=== PATIENT | male | born 1935 | race Caucasian/White ===

== ENCOUNTER 2017-05-29 09:57 | Emergency (ER) | payer MEDICARE ==
[2017-05-29 11:05] VITALS: BP 118/61
--- NOTE | 2017-05-29 11:44 | UC ---
Respiratory Complaint HPI - HPI Summary HPI Summary: 82 y/o male presents to the urgent care accompany by daughter c/o productive cough, wheezing at night, weakness, body aches fo rthe past week. He had mild subjective fever at home last night with nasal congestion and yellowish discharge and phlegm. Pt run out of his albuterol inhaler. Pt denies SOB, chest pain, N/V/D, sore throat, abdominal pain, GRAY, dizziness. 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 - History of Current Complaint Chief Complaint: UCGeneralIllness Stated Complaint: CONGESTION RASPY COUGH Time Seen by Provider: 05/29/17 11:34 Hx Obtained From: Patient, Family/Industrial Conveyor Belt Repairer - chitra Hx From Patient Unobtainable Due To: Altered Mental Status Onset/Duration: Gradual Onset, Lasting Weeks - 1 week, Still Present, Worse Since - yesterday Timing: Intermittent Episodes Severity Initially: Mild Severity Currently: Moderate Pain Intensity: 2 Pain Scale Used: 0-10 Numeric Character: Cough: Productive, Sputum Description: - yellowish Aggravating Factors: Recumbent Position Alleviating Factors: Bronchodilator Associated Signs And Symptoms: Positive: Fever, Wheezing, URI, Nasal Congestion - Risk Factors Pulmonary Embolism Risk Factors: Negative Cardiac Risk Factors: Negative Pseudomonas Risk Factors: Negative Tuberculosis Risk Factors: Negative - Allergies/Home Medications Allergies/Adverse Reactions: Allergies Allergy/AdvReac Type Severity Reaction Status Date / Time Levofloxacin [From Levaquin] Allergy Itching Verified 05/29/17 11:05 Penicillins Allergy Rash Verified 05/29/17 11:05 PMH/Surg Hx/FS Hx/Imm Hx Previously Healthy: Yes Cardiovascular History: Hypertension, Congestive Heart Failure Respiratory History: COPD - Surgical History Surgical History: None - Family History Known Family History: Positive: None, Cardiac Disease, Hypertension - Social History Occupation: Retired Lives: With Family Alcohol Use: None Substance Use Type: None Smoking Status (MU): Never Smoked Tobacco - Immunization History Most Recent Influenza Vaccination: not this season Most Recent Tetanus Shot: unk Most Recent Pneumonia Vaccination: 2016 Review of Systems Constitutional: Fever Skin: Negative Eyes: Negative ENT: Nasal Discharge, Sinus Congestion Respiratory: Cough, Other - wheezing at night time Cardiovascular: Negative Gastrointestinal: Negative Genitourinary: Negative Motor: Negative Neurovascular: Negative Musculoskeletal: Negative Neurological: Negative Psychological: Negative Is Patient Immunocompromised?: No All Other Systems Reviewed And Are Negative: Yes Physical Exam Triage Information Reviewed: Yes Vital Signs: Initial Vital Signs Temp 98.1 F 05/29/17 11:00 Pulse 70 05/29/17 11:00 Resp 16 05/29/17 11:00 BP 118/61 05/29/17 11:00 Pulse Ox 95 05/29/17 11:00 - Additional Comments Vital Signs Reviewed: Yes General: well developed, well nourished obese male sitting in the examining table w/o any apparent distress Eyes: Positive: Conjunctiva Clear - PERRLA, EOMI, fundi grossly normal ENT: Positive: Normal ENT inspection, Hearing grossly normal, Pharynx normal, Nasal congestion - edematous and erythematous nasal mucosa, Nasal drainage - yellowish drainage, TMs normal. Negative: Tonsillar swelling, Tonsillar exudate Neck: Positive: Supple, Nontender, No Lymphadenopathy Respiratory: no orthopnea or dyspnea. Able to speak in full sentences, no retractions or accessory muscle use, no tripod position, stridor, or head bobbing. Positive breath sound, B/L lungs with scattered wheezes and rhonchi., no crackles or rales. Cardiovascular: Positive: RRR, No Murmur, Pulses Normal, Brisk Capillary Refill Abdomen Description: Positive: Nontender, No Organomegaly, Soft. Negative: CVA Tenderness (R), CVA Tenderness (L) Bowel Sounds: Positive: Present Musculoskeletal Exam: Normal Musculoskeletal: Positive: Strength Intact, ROM Intact, No Edema Neurological Exam: Normal Psychological Exam: Normal Skin Exam: Normal UC Diagnostic Evaluation - Laboratory O2 Sat by Pulse Oximetry: 95 Respiratory Course/Dx - Course Course Of Treatment: 82 y/o male presents to the urgent care accompany by daughter c/o productive cough, wheezing at night, weakness, body aches fo rthe past week. He had mild subjective fever at home last night with nasal congestion and yellowish discharge and phlegm. Pt run out of his albuterol inhaler. Pt denies SOB, chest pain, N/V/D, sore throat, abdominal pain, GRAY, dizziness. 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 Pt with B/L lungs with wheezes and rhonchi LF>RT, [id number]%. Chest X-ray odered: Impression: Suguestive of chronic COPD, and possible left Basilar pulmonary nodule about 1.0cm in size. Radiologist recommends chest CT w/o contrast. Pt and Daughter explained X-ray results and they stated they were already aware of Pulmonary Nodule and DR Miranda Senior Linux [employer] Administrator at [facility] was monitoring his pulmonary Nodule for the past 2 years. I consulted Pt's symptoms with DR Green and she recommended to call DR Luna. I call DR Miranda and told him of X- ray findings and he agreed that he has been monitoring Pt's Pulmonary Nodule, last CT done in 2015 was 0.9cm in size and he will see Pt for a f/u visit. Pt given at the clinic Prednisone 60 mg PO ordered and Duneb treatment ordered. Pt tolerated well medications and his lungs improved. Pt states feeling better. Pt will be Tx for Acute Bronchitis, Rx Doxycycline PO , Prednisone taper dose and Inhaler. Strongly advised to f/u with her PCP for further management COPD and f/ u with DR Molina for his Pulmonary Nodule. Pt and daughter understood and agreed with D/C instructions and left the clinic hemodynamically stable. - Differential Dx/Diagnosis Differential Diagnosis/HQI/PQRI: Asthma, Bronchitis, Exacerbation Of COPD, Influenza, Lower Resp Infection, Sinusitis Provider Diagnoses: 1- COPD exacerbation. 2- Left basilar lung with a pulmonary nodule - Physician Notification/Consults Discussed Patient Care With: Sil Green - Dr Green agreed with Pt's planof care Discharge - Discharge Plan Condition: Stable Disposition: HOME Prescriptions: Albuterol HFA INHALER* [Ventolin HFA Inhaler*] 1 - 2 puff INH Q6H PRN #1 mdi PRN Reason: Wheezing Albuterol/Ipratropium NEB.PETER* [Duoneb (Albuterol 2.5 MG/Ipratropium 0.5 MG)] 1 neb INH Q6H PRN #1 melita PRN Reason: Wheezing DOXYcycline CAP(*) [DOXYcycline 100MG CAP(*)] 100 mg PO BID #20 cap predniSONE TAB* [Deltasone TAB*] 20 mg PO DAILY #8 tab Patient Education Materials: Acute Bronchitis (ED), COPD (Chronic Obstructive Pulmonary Disease) (ED), Pulmonary Nodules (ED) Referrals: Scott Rodriguez MD [Primary Care Provider] - 2 Days Yahir Miranda MD [Medical Doctor] - 2 Days Additional Instructions: 1-Please take full course of antibiotic to avoid resistance. 2-Take Tessalon PO tabs as directed and use the duo neb inhaler to alleviate cough. Increase fluid intake, rest and eat well. 3- If symptoms do not improve or worsen or your develop SOB with fever and severe wheezing please go immediately to the ER further evaluation and treatment. 4- F/u with your PCP in 2-3 days for further management on your COPD 5- F/u with your Senior Linux Unix Administrator DR Miranda on your Pulmonary nodule for further monitor
[2017-05-29] MEDS ORDERED: predniSONE TAB* 20 MG PO ONE (11:45)
[2017-05-29] MEDS ORDERED: Albuterol/Ipratropium NEB.SOL* Albuterol 2.5 MG/Ipratropium 0.5 MG 3 ML INH ONE (11:45)
--- NOTE | 2017-05-29 12:14 | RAD ---
INDICATION: Productive cough and wheezing. COMPARISON: Comparison is made with a prior study from February 11, 2015. TECHNIQUE: Dual-energy PA and lateral views of the chest were obtained. FINDINGS: The heart is within normal limits in size. Mediastinal and hilar contours appear within normal limits. The lungs are hyperinflated with flattening of the diaphragms suggestive of chronic obstructive pulmonary disease. No infiltrate or pleural effusion is seen. There is a faint 1 cm nodular density which projects at the left lung base only seen in the PA view. The results of this exam were called to the referring clinicians insurance legal assistant. IMPRESSION: 1. POSSIBLE LEFT BASILAR PULMONARY NODULE. RECOMMEND A CT OF THE CHEST WITHOUT CONTRAST FOR FURTHER EVALUATION. 2. FINDINGS SUGGESTIVE OF COPD, NO EVIDENCE FOR ACUTE FINDING.
== END 2017-05-29 12:51 | disposition home or self-care (01) ==
LOC: UCCORT 09:57
DX: J44.1 Chronic obstructive pulmonary disease with (acute) exacerbation (principal); I11.0 Hypertensive heart disease with heart failure; I50.9 Heart failure, unspecified; R91.1 Solitary pulmonary nodule; Z88.3 Allergy status to other anti-infective agents; Z88.0 Allergy status to penicillin
CPT/HCPCS: 71020; 99212; A9270-GY; G0463; J7512

== ENCOUNTER 2018-07-17 10:00 | Emergency (ER) | payer MEDICARE ==
--- OUTSIDE RECORDS SUMMARY | 2018-07-17 10:13 | XMS REPORT | Continuity of Care Document ---
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 Payers Type Date Identification Numbers Payment Provider Subscriber Effective: 2018 Policy Number: [id number] [employer] Michael Ortiz Group Name: [employer] [address] [address] PayID: [id number] [place] [address] Effective: 2015 Policy Number: [id number] [employer] Michael Ortiz Expires: 2018 Group Name: [facility] [address] [address] PayID: [id number] [place] [address] Advance Directives Description No Information Available Problems Date Description Provider Status Onset: 11/11/2015 Syncope and collapse Pat Young MD Active Onset: 01/19/2016 Paroxysmal ventricular tachycardia Ranjbaran-Jahromi, Ojey Active Onset: 01/19/2016 Mitral valve disorder Ranjbaran-Jahromi, Joey Active Onset: 01/19/2016 Aortic valve disorder Ranjbaran-Jahromi, Joey Active Onset: 01/19/2016 Edema Ranjbaran-Jahromi, Joey Active Onset: 04/25/2016 Screening for cardiovascular Ranjbaran-Jahromi, Joey Active system disease Onset: 04/25/2016 Thrombosis of atrium, auricular Ranjbaran-Jahromi, Joey Active appendage, 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 Onset: 05/14/2017 Obesity Ranjbaran-Jahromi, Joey Active Onset: 05/14/2017 Heart failure, unspecified Ranjbaran-Jahromi, Joey Active Onset: 11/13/2017 Dyspnea Bryce Rachel PA Active Onset: 01/19/2016 Essential hypertension Joey Moser Active Onset: 01/16/2018 Dizziness and giddiness Cathi Yu NP Active Onset: 01/16/2018 Long-term current use of Cathi Yu NP Active anticoagulant Onset: 01/16/2018 Malaise and fatigue Cathi uY NP Active Onset: 01/16/2018 Other hypotension Cathi Yu NP Active Onset: 03/27/2018 Heart valve replacement Joey Moser Active Family History Date Family Member(s) Problem(s) Comments Mother due to Congestive Heart () - AT 89 Failure Social History Type Date Description Comments Sex Unknown Marital Status Legal Status: Work Status Retired ETOH Use Denies alcohol use Tobacco Use Start: Unknown Patient has never smoked Smoking Status Reviewed: 03/25/18 Patient has never smoked Allergies, Adverse Reactions, Alerts Date Description Reaction Status Severity Comments 04/25/2016 Penicillin rash Active Severe 04/25/2016 Hydrocodone Nausea and Vomiting Active Severe 04/25/2016 Codeine Nausea and Vomiting Active Severe 04/25/2016 Prednisone leg cramps Active Moderate 11/13/2017 Vicodin nausea, vomiting, dizziness Active Medications Medication Date Status Form Strength Qnty SIG Indications Ordering Provider Carol M20 01/16/ Active Tablets ER 20Meq 1 by mouth Ranjbaran 2017 every day -Joey Lemus Ventolin HFA / Active Aerosol 108(90Base 2 puffs Unknown 0000 ) mcg/Act four times a day as needed L-Lysine / Active Tablets 500mg Daily Unknown 0000 Warfarin / Active Tablets 5mg 60tabs Take One Ranjbaran Sodium 0000 Tablet By -Ki Lemus Every Day Or as Directed Maximum Daily Dose=2 Nitrostat / Active Tablets Sub 0.4mg 1 tab Unknown 0000 under tongue, repeat q5 mins x2, as needed for chest pain Milk Of / Active Suspension 1200mg/15M 30ml by Unknown Magnesia 0000 L mouth as needed Tylenol / Active Tablets 325mg 2 tabs 4 Unknown 0000 times daily as needed Senna 00/00/ Active Tablets 8.6mg 1 by mouth Unknown 0000 every night at bedtime prn Ondansetron / Active Tablets 4mg 1 by mouth Unknown HCL 0000 every 6 hours as needed nausea Vitamin B 12 / Active 2500mcg Daily Unknown 0000 Vitamin D3 / Active Capsules 1000Unit 1 by mouth Unknown 0000 every day Requip / Active Tablets 0.25mg bid Unknown 0000 Metoprolol 02/13/ Hx Tablets 25mg 1/2 by Bekajbaran 2018 - mouth -Anjelicaomi, 03/27/ twice a 2017 day Furosemide 01/16/ Hx Tablets 20mg 1 by mouth Gudeliabargriffin 2017 - every day -Alberti, 2018 Klor-Con 01/16/ Hx Packet 20Meq 1 by mouth Gudeliabaran 2017 - every day -Alberti, 2017 Metoprolol 01/18/ Hx Tablets 25mg 180tab take one Ranlyndsaybaran Tartrate 2015 - tablet by -Allan, 02/13/ mouth 2017 twice a day Metoprolol 11/03/ Hx Tablets 25mg 180tab 1 by mouth Gudeliabaran Tartrate 2015 - s twice a -Albert, 2015 Aspirin Ec / Hx Tablets DR 325mg 1 by mouth Unknown 0000 - every day 2016 Tramadol HCL / Hx Tablets 50mg as needed Unknown - 2016 Xanax / Hx Tablets 0.25mg as needed Unknown - 2015 Lovenox / Hx Solution 120mg/0.8M sc twice a Unknown - L day as 2015 Klor-Con M20 / Hx Tablets ER 20Meq 90tabs 1 by mouth Gudeliabaran - twice a -Alberti, 2017 Aspirin / Hx Chewtabs 81mg 1 by mouth Unknown 0000 - every day 2017 Furosemide / Hx Tablets 20mg 180tab take one Ranjbaran - s tablet by -Allan, 01/16/ mouth 2017 twice a day Immunizations CPT Code Status Date Vaccine Lot # [id number] Refused 01/19/2016 Pneumococcal Immunization Vital Signs Date Vital Result Comment 06/26/2018 10:00am BP Systolic Right Arm 174 mmHg BP Diastolic Right Arm 88 mmHg Heart Rate 94 /min Weight 250.00 lb Height 70 inches 5'10" BMI (Body Mass Index) 35.9 kg/m2 BSA (Body Surface Area) 2.29 m2 03/27/2018 9:19am BP Systolic Right Arm 124 mmHg BP Diastolic Right Arm 82 mmHg Heart Rate 86 /min Weight 249.00 lb Height 70 inches 5'10" BMI (Body Mass Index) 35.7 kg/m2 BSA (Body Surface Area) 2.29 m2 02/13/2018 10:23am BP Systolic Right Arm 110 mmHg BP Diastolic Right Arm 70 mmHg Heart Rate 77 /min Weight 239.00 lb Height 70 inches 5'10" BMI (Body Mass Index) 34.3 kg/m2 O2 % BldC Oximetry 95 % BSA (Body Surface Area) 2.25 m2 01/16/2018 8:57am BP Systolic Right Arm 98 mmHg BP Diastolic Right Arm 58 mmHg Heart Rate 91 /min Weight 241.00 lb Height 70 inches 5'10" BMI (Body Mass Index) 34.6 kg/m2 O2 % BldC Oximetry 97 % BSA (Body Surface Area) 2.26 m2 11/13/2017 2:36pm BP Systolic Left Arm 118 mmHg BP Diastolic Left Arm 68 mmHg Heart Rate 65 /min Weight 250.00 lb Height 70 inches 5'10" BMI (Body Mass Index) 35.9 kg/m2 High Density Lipid 36 Low Density Lipid 118 Triglycerides 310 Total Cholesterol 216 O2 % BldC Oximetry 98 % BSA (Body Surface Area) 2.29 m2 05/14/2017 11:08am BP Systolic Right Arm 110 mmHg BP Diastolic Right Arm 70 mmHg Heart Rate 60 /min Weight 256.00 lb Height 70 inches 5'10" BMI (Body Mass Index) 36.7 kg/m2 BSA (Body Surface Area) 2.32 m2 03/12/2017 10:34am BP Systolic Right Arm 114 mmHg BP Diastolic Right Arm 78 mmHg Heart Rate 59 /min Weight 256.25 lb Height 70 inches 5'10" BMI (Body Mass Index) 36.8 kg/m2 BSA (Body Surface Area) 2.32 m2 04/25/2016 11:43am BP Systolic Right Arm 122 mmHg BP Diastolic Right Arm 68 mmHg Heart Rate 72 /min Weight 252.00 lb Height 70 inches 5'10" BMI (Body Mass Index) 36.2 kg/m2 BSA (Body Surface Area) 2.30 m2 01/19/2016 3:31pm BP Systolic Right Arm 128 mmHg BP Diastolic Right Arm 84 mmHg Heart Rate 72 /min Weight 251.00 lb Height 70 inches 5'10" BMI (Body Mass Index) 36.0 kg/m2 BSA (Body Surface Area) 2.30 m2 Results Test Date Facility Test Result H/L Range Note PT/Inr 07/01/2018 Out Of Office Inr 1.5 PT/Inr 06/21/2018 Out Of Office Inr 3.1 PT/Inr 06/13/2018 Out Of Office Inr 2.8 PT/Inr 05/31/2018 Out Of Office Inr 3.5 PT/Inr 05/16/2018 Out Of Office Inr 2.8 PT/Inr 05/07/2018 Home Monitors PT/Inr Inr 3.8 PT/Inr 04/08/2018 Out Of Office PT 19.2 Inr 1.6 PT/Inr 04/01/2018 Out Of Office Inr 2.7 PT/Inr 03/26/2018 Out Of Office Inr 3.9 PT/Inr 03/11/2018 Out Of Office PT 33.9 Inr 3.4 PT/Inr 02/12/2018 Out Of Office Inr 1.8 PT/Inr 02/04/2018 Out Of Office Inr 1.18 PT/Inr 12/03/2017 Out Of Office Inr 2.5 Prothrombin Time W/Inr 11/13/2017 DO Not Use [facility] Inr 3.2 High 1 [address] [facility] [address] [place] [address] [phone] Prothrombin Time 33.2 SECS. High 9.0-11.5 2 PT/Inr 10/04/2017 Out Of Office Inr 2.6 PT/Inr 07/30/2017 Out Of Office Inr 2.6 PT/Inr 07/10/2017 Out Of Office Inr 2.6 PT/Inr 06/19/2017 Out Of Office PT 34.5 Inr 3.5 PT/Inr 04/19/2017 Out Of Office Inr 2.5 PT/Inr 03/06/2017 Out Of Office Inr 2.9 PT/Inr 01/15/2017 Out Of Office Inr 2.7 PT/Inr 12/05/2016 Out Of Office Inr 2.3 PT/Inr 10/31/2016 Out Of Office PT 24.7 Inr 2.3 PT/Inr 10/03/2016 Out Of Office Inr 2.6 PT/Inr 09/05/2016 Out Of Office Inr 2.5 PT/Inr 08/08/2016 Out Of Office Inr 2.4 PT/Inr 08/03/2016 Out Of Office PT 26.5 Inr 2.5 PT/Inr 07/18/2016 Out Of Office PT 29.1 Inr 2.9 PT/Inr 06/27/2016 Out Of Office Inr 2.7 PT/Inr 05/23/2016 Out Of Office Inr 2.0 PT/Inr 05/11/2016 Out Of Office PT 19.2 Inr 1.7 PT/Inr 04/03/2016 Out Of Office PT 27.3 Inr 2.6 PT/Inr 03/02/2016 Out Of Office Inr 1.8 PT/Inr 02/11/2016 Out Of Office Inr 2.5 PT/Inr 02/03/2016 Out Of Office PT 19.6 Inr 1.7 PT/Inr 01/12/2016 Out Of Office PT 23.1 Inr 2.1 PT/Inr 12/31/2015 Out Of Office Inr 2.3 PT/Inr 12/15/2015 Out Of Office Inr 2.1 PT/Inr 12/01/2015 Out Of Office Inr 2.94 PT/Inr 11/24/2015 Out Of Office PT 25.2 Inr 2.4 PT/Inr 11/17/2015 Out Of Office Inr 4.0 PT/Inr 11/09/2015 Out Of Office PT 32.9 Inr 3.4 PT/Inr 10/26/2015 Out Of Office Inr 1.67 Basic metabolic panel 10/24/2015 N2N/CCD Import Anion Gap 12 mmol/L 7 - 16 BUN/Creatinine Ratio 18.1 Ratio 10.0 - 20.0 Calcium 9.1 mg/dL 8.4 - 10.2 Chloride 108 mmol/L 100 - 108 Co2 23 mmol/L 22 - 31 Creatinine 0.94 mg/dL 0.80 - 1.30 GFR MDRD Af Amer >60 >59 ml/min/1.73m2 GFR MDRD Non Af Amer >60 >59 ml/min/1.73m2 Glom Filt Rate, Est See Notes Glucose 94 mg/dL 70 - 99 Potassium 4.3 mmol/L 3.6 - 5.2 Sodium 143 mmol/L 136 - 145 Urea nitrogen 17 mg/dL 7 - 24 CBC 10/24/2015 N2N/CCD Import Hematocrit 39.9 % Low 41.0 - 53.0 Hemoglobin 13.2 g/dL Low 13.5 - 18.0 MCH 29.9 pg 27.0 - 32.0 MCHC 33.1 g/dL 32.0 - 36.0 MCV 90.4 fL 80.0 - 95.0 MPV 8.5 fL 7.1 - 10.7 Platelets 137 10*3/uL Low 150 - 450 RBC 4.41 10*6/uL Low 4.60 - 6.10 RDW 15.6 % High 10.5 - 14.5 WBC 5.2 10*3/uL 4.1 - 11.0 Protime-Inr 10/24/2015 N2N/CCD Import Inr 1.08 1 Protime 10.9 s 9.2 - 11.9 aPTT 10/23/2015 N2N/CCD Import aPTT 63.7 s High 22.0 - 32.6 Rapid strep 10/22/2015 N2N/CCD Import Report Status 10/22/2015 screen Final Special Requests None Specimen Description Throat Swab Poc Blood Gas 10/21/2015 N2N/CCD Import Draw Site LT Radial Poc Armand's Test Negative Poc Art O2 Sat 97 % 95 - 99 Poc Base Exc, Art 1 Mmol/L 0 - 3 Poc Fio2 21 1 Poc Hco3 25.4 Mmol/L 21.0 - 29.0 Poc Source Arterial Poc Temp 37.0C Poc Total Co2 27 Mmol/L 23.0 - 32.0 Poc pCO2 39.9 MMHG 32.0 - 48.0 Poc pH 7.41 pH 7.35 - 7.45 Poc pO2 91 MMHG 83 - 108 Source Of Oxygen Room Air CK 10/21/2015 N2N/CCD Import CK 42 U/L 39 - 308 B-type 10/21/2015 N2N/CCD Import B natriuretic 191 pg/mL High 0 - 100 Natriuretic peptide Peptide Hepatic Function 10/21/2015 N2N/CCD Import Alb/Glob ratio 1.4 Ratio Panel Albumin 3.7 g/dL 3.2 - 4.5 Alkaline Phosphatase 49 U/L 45 - 117 Alt 17 U/L 12 - 78 Ast 17 U/L 11 - 39 Bilirubin, Direct 0.2 mg/dL 0.0 - 0.3 Bilirubin, Indirect 0.3 mg/dL 0.0 - 0.7 Bilirubin, Total 0.5 mg/dL 0.0 - 1.0 Globulin 2.7 g/dL 2.7 - 4.3 Protein, Total 6.4 g/dL 6.4 - 8.2 Lactate 10/21/2015 N2N/CCD Import LD 302 U/L High 84 - 246 Dehydrogenase Phosphorus 10/21/2015 N2N/CCD Import Phosphorus 3.2 mg/dL 2.5 - 4.5 Type and Screen 10/21/2015 N2N/CCD Import Antibody Screen Negative Patient Abo/Rh O Positive Room temp AB screen Negative Specimen Expiration Date 10/24/2015 Testing site Performed At [address] [place] [id number] Uric acid 10/21/2015 N2N/CCD Import Uric Acid 5.2 mg/dL 3.5 - 7.2 Occult blood x 10/20/2015 N2N/CCD Import Stool occult Negative Negative 1, stool blood Lactic acid 10/18/2015 N2N/CCD Import Lactate 1.0 mmol/L 0.4 - 2.0 Magnesium 10/18/2015 N2N/CCD Import Magnesium 2.2 mg/dL 1.7 - 2.4 TSH 10/17/2015 N2N/CCD Import TSH, High 1.991 mIU/L 0.360 - Sensitivity 4.170 Troponin I 10/17/2015 N2N/CCD Import Troponin I <0.06 0.00 - 0.10 ng/mL Lactate, Poc 10/17/2015 N2N/CCD Import Lactate, Poc 1.95 mmol/L High 0.90 - 1.70 CBC w/ diff 10/16/2015 N2N/CCD Import Basophils 0.1 10*3/uL 0.0 - 0.2 Absolute Basophils Relative 1.0 % 0.0 - 4.0 Eosinophils Absolute 0.0 10*3/uL 0.0 - 0.5 Eosinophils Relative 0.6 % 0.0 - 5.0 Hematocrit 37.6 % Low 41.0 - 53.0 Hemoglobin 12.4 g/dL Low 13.5 - 18.0 Lymphocytes Absolute 0.9 10*3/uL Low 1.2 - 4.8 Lymphocytes Relative 17.9 % 16.0 - 52.0 MCH 29.4 pg 27.0 - 32.0 MCHC 32.9 g/dL 32.0 - 36.0 MCV 89.5 fL 80.0 - 95.0 MPV 9.6 fL 7.1 - 10.7 Monocytes Absolute 0.5 10*3/uL 0.0 - 0.8 Monocytes Relative 9.3 % High 0.0 - 8.0 Neutrophils % 71.2 % 35.0 - 75.0 Neutrophils Absolute 3.7 10*3/uL 1.8 - 7.7 Platelets 139 10*3/uL Low 150 - 450 RBC 4.20 10*6/uL Low 4.60 - 6.10 RDW 15.6 % High 10.5 - 14.5 WBC 5.2 10*3/uL 4.1 - 11.0 Poct troponin 10/16/2015 N2N/CCD Import Poc Troponin I <0.02 0.00 - 0.10 ng/mL 1 INR REFERENCE RANGE: 0.9-1.1 MODERATE-INTENSITY WARFARIN THERAPY: 2.0-3.0 HIGHER-INTENSITY WARFARIN THERAPY: 3.0-4.0 2 *FAX SENT REQUESTED TO [phone] Procedures Date Code Description Status 01/16/2018 66086 Electrocardiogram Complete Completed 12/25/2017 12880 Left Heart Cath W/Wo LV & Coronary Angiography Completed 05/14/2017 32546 Complete ECHO Completed 03/12/2017 05733 Electrocardiogram Complete Completed 11/16/2015 36139 Holter Recording Review & Interpretation Completed 11/16/2015 70671 Holter Recording Completed 11/11/2015 01531 Echocardiography W/ECG Includes Cont Monitoring Completed 11/11/2015 07993 Doppler Color Flow Velocity Mapping Completed 11/11/2015 71364 Doppler Echocardiography Complete Completed 11/11/2015 41194 Holter Recording Review & Interpretation Completed 11/11/2015 31986 Holter Recording Completed 10/20/2015 84387 RT & LT Heart Cath W/Coronary Angiography Completed Encounters Type Date Location Provider Dx Diagnosis Office Visit 06/26/2018 [facility] Moser I23.6 [facility] 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 Joey prosthetic heart valve I23.6 [place] of atrium/auric append/ventr as current comp fol AMI E66.8 Other obesity Office Visit 02/13/2018 10:15a PaiaJosh Yeagera, I34.0 [facility] 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 PA (valve) insufficiency I35.0 Nonrheumatic aortic (valve) stenosis I50.9 Heart failure, unspecified R06.02 Shortness of breath Office Visit 05/14/2017 [facility] Yefrimilo, I50.9 Heart failure , [facility] Joey unspecified I34.0 Nonrheumatic mitral (valve) insufficiency Z13.6 Encounter for screening for cardiovascular disorders E66.8 Other obesity Office Visit 03/12/2017 10:15a [facility] Josh Yua, I34.0 [facility]heumatic [facility] EXPEDITER CLERK (valve) insufficiency R60.0 Localized edema Office Visit 07/05/2016 3:00p [facility], I34.0 Nonrheumatic mitral MD Vidhi (valve) insufficiency Office Visit 04/25/2016 11:30a [facility] mi, Joey (valve) insufficiency R60.0 Localized edema Z13.6 Encounter for screening for cardiovascular disorders I23.6 [place] of atrium/auric append/ventr as current comp fol AMI Office Visit 01/19/2016 [facility] Shanti, I47.2 Ventricular 3:15p [facility] Cook tachycardia I34.0 Nonrheumatic mitral (valve) insufficiency I35.0 Nonrheumatic aortic (valve) stenosis R60.0 Localized edema Plan of Treatment Future Appointment(s):12/18/2018 10:45 am - Marlene Cramer at [facility]12/27/2018 10:15 am - Joey Moser at [facility]09/25/2018 10:00 am - Mid-Level at [facility]
--- NOTE | 2018-07-17 11:56 | UC ---
Respiratory Complaint HPI - HPI Summary HPI Summary: 83-year-old male comes in with a chief complaint of 2-3 days of cough chest congestion and wheezing. he also had some body aches. No measured fevers. He has COPD he has not used his albuterol inhaler. He has chronic pedal edema. He 's been having dizziness for the last 6 or 7 months. He's had cardiac surgery. He was scheduled to have a loop recorder implanted today because of recurrent lightheadedness and dizzy episodes however because he's been sick that has been postponed. Patient reports she is on potassium 20 meq twice a day's been unable to get a hold of his primary care doctor to get a refill and he only has 1 day left. Reports he was also on metoprolol and furosemide but those both have been stopped due to the dizziness episodes. The cough and chest congestion is worse when he is laying down and he has coughing fits when he first wakes up in the morning. Once he sits up he is able to breathe better. no Chest pain. - History of Current Complaint Chief Complaint: UCRespiratory Stated Complaint: COUGH,ACHY,WHEEZING Time Seen by Provider: 07/17/18 11:28 Pain Intensity: 6 - Allergies/Home Medications Allergies/Adverse Reactions: Allergies Allergy/AdvReac Type Severity Reaction Status Date / Time codeine Allergy Hallucinati Verified 07/17/18 10:54 ons gabapentin Allergy Hallucinati Verified 07/17/18 10:54 ons hydrocodone Allergy Hallucinati Verified 07/17/18 10:54 ons levofloxacin [From Levaquin] Allergy Itching Verified 07/17/18 10:54 Penicillins Allergy Rash Verified 07/17/18 10:54 PMH/Surg Hx/FS Hx/Imm Hx Previously Healthy: Yes Endocrine History: Dyslipidemia Cardiovascular History: Hypertension, Congestive Heart Failure, Atrial Fibrillation Respiratory History: COPD - Surgical History Surgical History: Yes Surgery Procedure, Year, and Place: open heart surgery 12/2017 - Family History Known Family History: Positive: None, Cardiac Disease, Hypertension - Social History Alcohol Use: None Substance Use Type: None Smoking Status (MU): Never Smoked Tobacco - Immunization History Most Recent Influenza Vaccination: not this season Most Recent Tetanus Shot: unk Most Recent Pneumonia Vaccination: 2015 Review of Systems All Other Systems Reviewed And Are Negative: Yes Constitutional: Positive: Negative Skin: Positive: Negative Eyes: Positive: Negative ENT: Positive: Nasal Discharge Respiratory: Positive: Cough, Other - wheezing Cardiovascular: Positive: Negative Gastrointestinal: Positive: Negative Motor: Positive: Negative Neurovascular: Positive: Negative Musculoskeletal: Positive: Edema Neurological: Positive: Negative Psychological: Positive: Negative Is Patient Immunocompromised?: No Physical Exam Triage Information Reviewed: Yes Appearance: Well-Appearing, No Pain Distress, Well-Nourished Vital Signs: Initial Vital Signs Temp 98.4 F 07/17/18 10:47 Pulse 109 07/17/18 10:47 Resp 18 07/17/18 10:47 BP 148/69 07/17/18 10:47 Pulse Ox 93 07/17/18 10:47 Vital Signs Reviewed: Yes Eye Exam: Normal Eyes: Positive: Conjunctiva Clear ENT: Positive: Pharynx normal, Nasal congestion, TMs normal Neck exam: Normal Neck: Positive: Supple Respiratory: Positive: Lungs clear, Normal breath sounds, No respiratory distress, No accessory muscle use Cardiovascular: Positive: RRR Musculoskeletal: Positive: Strength Intact, ROM Intact, Edema @ - b/l Neurological Exam: Normal Neurological: Positive: Alert, Muscle Tone Normal Psychological Exam: Normal Psychological: Positive: Age Appropriate Behavior Skin Exam: Normal UC Diagnostic Evaluation - Laboratory O2 Sat by Pulse Oximetry: 93 - EKG Cardiac Rate: NL - AT 1155 Cardiac Rhythm: Sinus: Normal - 99 Ectopy: None ST Segment: Normal - INCOMPLETE LBBB Respiratory Course/Dx - Course Course Of Treatment: Order Information: CHEST PA LAT 2 VWS. Accession Number: [id number]. CPT: 86613. Indication: Cough, wheezing. 2 views of the chest demonstrates no mediastinal shift. Cardiomegaly is noted. Interstitial edema consistent with vascular congestion is noted. No definite pneumonia is. identified. The patient is status post tracer thoracotomy. IMPRESSION: Interstitial edema consistent with vascular congestion. . <Electronically signed by Gracie Hope MD in OV> 07/17/18 1221. A chest x-ray patient has some pulmonary edema. He also has pedal edema which patient says is not any worse than usual. Patient shortness of breath is worse at night when he is laying down which makes it suspicious for congestive heart failure. Patient has not been taking his furosemide for at least a month. He still reports being on potassium 20 mEq twice a day. I believe he was on potassium because he was on furosemide. It's time it's unclear if the patient has a primary care physician to help manage medications. Overall my plan will be to treat with azithromycin for the possibility of bronchitis given the patient's multiple medical issues. 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 If the patient gets worse with chest pain or shortness of breath or any other questions concerns he needs to get reevaluated. With patient having been taking 40 mEq potassium a day without taking any Lasix we will also check serum potassium along with kidney functions BNP and CBC and CMP. His EKG did not show peaked T waves. - Differential Dx/Diagnosis Provider Diagnosis: Bronchitis, Pulmonary edema Discharge - Sign-Out/Discharge Documenting (check all that apply): Patient Departure All imaging exams completed and their final reports reviewed: Yes - Discharge Plan Condition: Stable Disposition: HOME Prescriptions: Azithromyxin KEL (NF) [Z-Kel (Zithromax) 250 mg tabs #6] 2 tab PO .TODAY, THEN 1 DAILY #6 tab Furosemide [Lasix] 20 mg PO DAILY #5 tablet Potassium Chlor TAB* [Klor Con ER TAB 10 MEQ*] 10 meq PO DAILY #5 tab.er Patient Education Materials: Pulmonary Edema (ED), Acute Bronchitis (ED), Dyspnea (ED) Referrals: [facility] [place] [facility]IAN REFERRAL [Outside] Scott Rodriguez MD [Medical Doctor] - Additional Instructions: FOLLOW UP WITH YOUR DOCTOR. TAKE LASIX 20MG AND POTASSIUM 10MEQ ONCE A DAY FOR 5 DAYS. GET RECHECKED SOONER WITH ANY WORSENING OF YOUR CONDITION; SHORTNESS OF BREATH, FEVER, CHEST PAIN , YOU FEEL ILL OR QUESTIONS OR CONCERNS. - Billing Disposition and Condition Condition: STABLE Disposition: Home
[2018-07-17 12:10] LABS: Influenza A Molecular NEGATIVE (Negative); Influenza B Molecular NEGATIVE (Negative)
[2018-07-17 13:03] VITALS: BP 134/65
[2018-07-17 18:56] LABS: ABS Basophils 0.1 10^3/ul (0-0.2); ABS Eosinophils 0.1 10^3/ul (0-0.6); ABS Lymphocytes 1.4 10^3/ul (1.0-4.8); ABS Monocytes 0.9 10^3/ul (0-0.8); ABS Neutrophils 7.8 10^3/ul (1.5-7.7); ABS Nucleated RBC 0 10^3/ul; Eosinophil % 1.4 %; Hematocrit 43 % (42-52); Lymphocyte % 13.6 %; Mean Corpuscular HGB Conc 33 g/dl (31-36); Mean Corpuscular Hemoglobin 29 pg (27-31); Mean Corpuscular Volume 87 fL (80-94); Nucleated Red Blood Cells % 0.4; Red Blood Count 4.88 10^6/ul (4.00-5.40); Red Cell Distribution Width 16 % (10.5-15); White Blood Count 10.2 10^3/ul (3.5-10.8)
[2018-07-17 19:17] LABS: Albumin 4.4 g/dL (3.2-5.2); Calcium 9.6 mg/dL (8.6-10.3); Potassium 4.7 mmol/L (3.5-5.0); Total Bilirubin 0.8 mg/dL (0.2-1.0)
[2018-07-17 19:23] LABS: Albumin/Globulin Ratio 1.8 (1-3); EGFR African American 86.3 (>60); EGFR Non-African American 71.4 (>60); Globulin 2.4 g/dL (2-4); Total Protein 6.8 g/dL (6.4-8.9)
== END 2018-07-17 13:21 | disposition home or self-care (01) ==
LOC: UCCORT 10:00
DX: J40 Bronchitis, not specified as acute or chronic (principal); I10 Essential (primary) hypertension; J44.9 Chronic obstructive pulmonary disease, unspecified; I50.9 Heart failure, unspecified; I50.1 Left ventricular failure, unspecified; Z88.0 Allergy status to penicillin; Z88.5 Allergy status to narcotic agent; Z88.8 Allergy status to other drugs, medicaments and biological substances; Z88.1 Allergy status to other antibiotic agents
CPT/HCPCS: 36415; 71046; 80053; 83880; 85025; 93005; 99212; G0463

== ENCOUNTER 2022-07-06 14:06 | Inpatient (IN) ==
[2022-07-06 14:51] LABS: ABS Basophils 0.1 10^3/ul (0-0.2); ABS Lymphocytes 0.2 10^3/ul (1.0-4.8); ABS Monocytes 0.4 10^3/ul (0-0.8); ABS Neutrophils 7.8 10^3/ul (1.5-7.7); Eosinophil % 0.1 %; Hematocrit 35 % (42-52); Hemoglobin 11.5 g/dL (14.0-18.0); Lymphocyte % 2.2 %; Mean Corpuscular HGB Conc 33 g/dL (31-36); Mean Corpuscular Hemoglobin 29 pg (27-31); Mean Corpuscular Volume 89 fL (80-94); Mean Platelet Volume 8.1 fL (7.4-10.4); Platelet Count 131 10^3/uL (150-450); Red Cell Distribution Width 16 % (10-15); White Blood Count 8.5 10^3/uL (3.5-10.8)
[2022-07-06 15:02] LABS: Urine Appearance Clear; Urine Bilirubin Negative (Negative); Urine Blood 1+ (Negative); Urine Color Yellow; Urine Glucose Negative (Negative); Urine Ketones Negative (Negative); Urine Nitrite Negative (Negative); Urine Protein 1+(30 mg/dL) (Negative); Urine Specific Gravity 1.018 (1.002-1.030); Urine Urobilinogen Negative (Negative)
[2022-07-06 15:04] LABS: Activated Partial Thrombo Time 25.8 seconds (26.0-38.0); INR 1.18 (0.88-1.18); Urine Bacteria Absent (Absent); Urine Red Blood Cell Trace(0-2/hpf) (Absent); Urine White Blood Cell Trace(0-5/hpf) (Absent)
[2022-07-06] MEDS ORDERED: NS 0.9% 1000 ml BAG 1,000 ML IV ONE ×2 (15:18→22:00)
[2022-07-06 15:43] LABS: Albumin 3.6 g/dL (3.2-5.2); Albumin/Globulin Ratio 1.4 (1-3); C Reactive Protein 157.68 mg/L (<8.01); Calcium 9.6 mg/dL (8.6-10.3); Globulin 2.5 g/dL (2-4); Potassium 3.4 mmol/L (3.5-5.0); Total Bilirubin 0.8 mg/dL (0.2-1.0); Total Protein 6.1 g/dL (6.4-8.9); eGFR CKD-EPI 72.8 (>60)
[2022-07-06] MEDS ORDERED: Iohexol 350 (CONTRAST) 500 ML MDV IV ONE (15:59)
[2022-07-06 16:13] LABS: High Sensitivity Troponin 1 Hr 222 pg/mL (<20)
[2022-07-06] MEDS ORDERED: Cefepime 2 GM in Dextrose 2 GM/50 ML BAG IV ONE (18:34)
[2022-07-06] MEDS ORDERED: Albuterol HFA INHALER 8 gm MDI INH PRN (23:45)
[2022-07-07] MEDS ORDERED: Remdesivir 100 mg Vial 200 MG in NS 0.9% 250 ml 210 ML IV ONE (01:00)
[2022-07-07] MEDS: Enoxaparin 40 MG/0.4 ML SYR SUBCUT SCH ×2 (01:33→20:04)
[2022-07-07 01:45] LABS: INR 1.2 (0.88-1.18)
[2022-07-07] MEDS ORDERED: Ondansetron 4 mg VIAL 2 MG/ML 2 ml VIAL IV PRN (03:51)
[2022-07-07 04:11] LABS: Magnesium 2.3 mg/dL (1.9-2.7)
[2022-07-07 06:00] LABS: Hematocrit 31 % (42-52); Hemoglobin 10.2 g/dL (14.0-18.0); Mean Corpuscular HGB Conc 33 g/dL (31-36); Mean Corpuscular Hemoglobin 29 pg (27-31); Mean Corpuscular Volume 89 fL (80-94); Mean Platelet Volume 8.4 fL (7.4-10.4); Platelet Count 113 10^3/uL (150-450); Red Blood Count 3.51 10^6 /uL (4.18-5.48); Red Cell Distribution Width 16 % (10-15); White Blood Count 5.9 10^3/uL (3.5-10.8)
[2022-07-07 06:33] LABS: Albumin/Globulin Ratio 1.6 (1-3); Calcium 8.5 mg/dL (8.6-10.3); Creatinine, Serum 0.87 mg/dL (0.67-1.17); Globulin 1.9 g/dL (2-4); Potassium 3.3 mmol/L (3.5-5.0); Total Bilirubin 0.4 mg/dL (0.2-1.0); Total Protein 4.9 g/dL (6.4-8.9); eGFR CKD-EPI 83.5 (>60)
[2022-07-07 07:21] LABS: RBC Morphology Normal (Normal)
[2022-07-07 07:22] LABS: ABS Lymphocytes 0.9 10^3/ul (1.0-4.8); ABS Monocytes 0.9 10^3/ul (0-0.8); ABS Neutrophils 4.1 10^3/ul (1.5-7.7); Eosinophil % 0.4 %; Lymphocyte % 14.8 %
[2022-07-07] MEDS ORDERED: cefTRIAXone 1 gm/50 mL D5W 1 GM/50 ML BAG IV SCH (07:30)
[2022-07-07] MEDS ORDERED: Potassium Chlor 20 meq TAB.ER PO ONE (07:49)
[2022-07-07] MEDS: Potassium Chlor 10 meq TAB PO SCH (07:56)
[2022-07-07] MEDS: Cholecalciferol (VIT D3) 1,000 unit TAB PO SCH (07:57)
[2022-07-07] MEDS ORDERED: Dexamethasone IV 4 MG/ML VIAL 1 ml VIAL IV SLOW PU SCH (09:00)
[2022-07-07] MEDS: KCL 20 MEQ/100 ML IVPREMIX 20 MEQ/100 ML BAG IV SCH ×2 (09:52→14:00)
[2022-07-07] MEDS ORDERED: cefTRIAXone 1 gm/50 mL D5W 1 GM/50 ML BAG IV ONE (10:40)
[2022-07-08 06:35] LABS: ABS Lymphocytes 0.4 10^3/ul (1.0-4.8); ABS Monocytes 0.4 10^3/ul (0-0.8); ABS Neutrophils 5.1 10^3/ul (1.5-7.7); Eosinophil % 0.1 %; Hematocrit 34 % (42-52); Hemoglobin 10.8 g/dL (14.0-18.0); Lymphocyte % 6.7 %; Mean Corpuscular HGB Conc 32 g/dL (31-36); Mean Corpuscular Hemoglobin 29 pg (27-31); Mean Corpuscular Volume 89 fL (80-94); Mean Platelet Volume 8.6 fL (7.4-10.4); Platelet Count 129 10^3/uL (150-450); Red Blood Count 3.75 10^6 /uL (4.18-5.48); Red Cell Distribution Width 16 % (10-15); White Blood Count 5.9 10^3/uL (3.5-10.8)
[2022-07-08 06:42] LABS: INR 1.2 (0.88-1.18)
[2022-07-08 07:15] LABS: Albumin 3.2 g/dL (3.2-5.2); Albumin/Globulin Ratio 1.5 (1-3); Calcium 9.2 mg/dL (8.6-10.3); Creatinine, Serum 0.89 mg/dL (0.67-1.17); Globulin 2.2 g/dL (2-4); Potassium 4.3 mmol/L (3.5-5.0); Total Bilirubin 0.5 mg/dL (0.2-1.0); Total Protein 5.4 g/dL (6.4-8.9); eGFR CKD-EPI 82.9 (>60)
[2022-07-08] MEDS: cefTRIAXone 2 gm/50 mL D5W 2 GM/50 ML BAG IV SCH (08:50)
[2022-07-08] MEDS: Potassium Chlor 10 meq TAB PO SCH (08:55)
[2022-07-08] MEDS: Cholecalciferol (VIT D3) 1,000 unit TAB PO SCH (08:57)
[2022-07-08] MEDS: Remdesivir 100 mg Vial 100 MG in NS 0.9% 250 ml 230 ML IV SCH (09:40)
[2022-07-08] MEDS: Enoxaparin 40 MG/0.4 ML SYR SUBCUT SCH (19:45)
[2022-07-08] MEDS ORDERED: [UNRECOGNIZED DRUG - OTHER] SL SCH (21:00)
[2022-07-08] MEDS ORDERED: Lactated Ringers 1000 ml BAG 1,000 ML IV SCH (21:00)
[2022-07-09 06:29] LABS: INR 1.2 (0.88-1.18)
[2022-07-09 06:38] LABS: Albumin 3.2 g/dL (3.2-5.2); Albumin/Globulin Ratio 1.5 (1-3); Calcium 9.2 mg/dL (8.6-10.3); Creatinine, Serum 0.87 mg/dL (0.67-1.17); Globulin 2.2 g/dL (2-4); Total Bilirubin 0.4 mg/dL (0.2-1.0); Total Protein 5.4 g/dL (6.4-8.9); eGFR CKD-EPI 83.5 (>60)
[2022-07-09] MEDS: cefTRIAXone 2 gm/50 mL D5W 2 GM/50 ML BAG IV SCH (07:55)
[2022-07-09] MEDS: Cholecalciferol (VIT D3) 1,000 unit TAB PO SCH (07:59)
[2022-07-09] MEDS: Potassium Chlor 10 meq TAB PO SCH (08:00)
[2022-07-09] MEDS: Remdesivir 100 mg Vial 100 MG in NS 0.9% 250 ml 230 ML IV SCH (08:27)
[2022-07-09] MEDS ORDERED: [UNRECOGNIZED DRUG - OTHER] SL PRN (19:21)
[2022-07-09] MEDS: [UNRECOGNIZED DRUG - OTHER] SL PRN (20:35)
[2022-07-09] MEDS: Enoxaparin 40 MG/0.4 ML SYR SUBCUT SCH (20:36)
[2022-07-10 06:12] LABS: Hematocrit 33 % (42-52); Hemoglobin 10.9 g/dL (14.0-18.0); Mean Corpuscular HGB Conc 33 g/dL (31-36); Mean Corpuscular Hemoglobin 29 pg (27-31); Mean Corpuscular Volume 88 fL (80-94); Mean Platelet Volume 7.8 fL (7.4-10.4); Platelet Count 153 10^3/uL (150-450); Red Blood Count 3.73 10^6 /uL (4.18-5.48); Red Cell Distribution Width 16 % (10-15); White Blood Count 4.8 10^3/uL (3.5-10.8)
[2022-07-10 06:59] LABS: Albumin 3.3 g/dL (3.2-5.2); Albumin/Globulin Ratio 1.4 (1-3); Calcium 9.5 mg/dL (8.6-10.3); Creatinine, Serum 0.97 mg/dL (0.67-1.17); Globulin 2.3 g/dL (2-4); Magnesium 2.1 mg/dL (1.9-2.7); Potassium 3.9 mmol/L (3.5-5.0); Total Bilirubin 0.4 mg/dL (0.2-1.0); Total Protein 5.6 g/dL (6.4-8.9); eGFR CKD-EPI 75.6 (>60)
[2022-07-10 07:14] LABS: ABS Eosinophils 0.1 10^3/ul (0-0.6); ABS Lymphocytes 0.9 10^3/ul (1.0-4.8); ABS Monocytes 0.7 10^3/ul (0-0.8); ABS Neutrophils 3.2 10^3/ul (1.5-7.7); Eosinophil % 1.2 %; Lymphocyte % 18.3 %
[2022-07-10] MEDS: Cholecalciferol (VIT D3) 1,000 unit TAB PO SCH (08:45)
[2022-07-10] MEDS: Potassium Chlor 10 meq TAB PO SCH (08:46)
[2022-07-10] MEDS: cefTRIAXone 2 gm/50 mL D5W 2 GM/50 ML BAG IV SCH (08:46)
[2022-07-10] MEDS: [UNRECOGNIZED DRUG - OTHER] SL PRN (12:50)
[2022-07-10] MEDS ORDERED: Sulfur Hexaflouride MICROSPHR 25 MG VIAL ONE (14:09)
[2022-07-10] MEDS ORDERED: [UNRECOGNIZED DRUG - OTHER] PO PRN (14:54)
[2022-07-10] MEDS ORDERED: guaiFENesin 100 mg/5 ml LIQ unit dose cup PO PRN (17:19)
[2022-07-10] MEDS: Enoxaparin 40 MG/0.4 ML SYR SUBCUT SCH (20:59)
[2022-07-11 05:59] LABS: Hematocrit 33 % (42-52); Hemoglobin 10.9 g/dL (14.0-18.0); Mean Corpuscular HGB Conc 33 g/dL (31-36); Mean Corpuscular Hemoglobin 29 pg (27-31); Mean Corpuscular Volume 89 fL (80-94); Mean Platelet Volume 7.8 fL (7.4-10.4); Platelet Count 171 10^3/uL (150-450); Red Blood Count 3.76 10^6 /uL (4.18-5.48); Red Cell Distribution Width 16 % (10-15); White Blood Count 5.3 10^3/uL (3.5-10.8)
[2022-07-11 06:21] LABS: Albumin 3.2 g/dL (3.2-5.2); Albumin/Globulin Ratio 1.5 (1-3); Calcium 9.2 mg/dL (8.6-10.3); Creatinine, Serum 0.81 mg/dL (0.67-1.17); Globulin 2.1 g/dL (2-4); Magnesium 2.1 mg/dL (1.9-2.7); Potassium 3.9 mmol/L (3.5-5.0); Total Bilirubin 0.4 mg/dL (0.2-1.0); Total Protein 5.3 g/dL (6.4-8.9); eGFR CKD-EPI 85.3 (>60)
[2022-07-11 06:29] LABS: ABS Basophils 0.1 10^3/ul (0-0.2); ABS Eosinophils 0.1 10^3/ul (0-0.6); ABS Lymphocytes 1.1 10^3/ul (1.0-4.8); ABS Monocytes 0.6 10^3/ul (0-0.8); ABS Neutrophils 3.5 10^3/ul (1.5-7.7); Eosinophil % 1.6 %; Lymphocyte % 20.3 %
[2022-07-11] MEDS: Cholecalciferol (VIT D3) 1,000 unit TAB PO SCH (08:14)
[2022-07-11] MEDS: cefTRIAXone 2 gm/50 mL D5W 2 GM/50 ML BAG IV SCH (08:14)
[2022-07-11] MEDS: Potassium Chlor 10 meq TAB PO SCH (08:15)
[2022-07-11] MEDS: Enoxaparin 40 MG/0.4 ML SYR SUBCUT SCH (20:51)
[2022-07-12 06:07] LABS: Hematocrit 34 % (42-52); Mean Corpuscular HGB Conc 32 g/dL (31-36); Mean Corpuscular Hemoglobin 28 pg (27-31); Mean Corpuscular Volume 89 fL (80-94); Mean Platelet Volume 7.3 fL (7.4-10.4); Platelet Count 199 10^3/uL (150-450); Red Blood Count 3.87 10^6 /uL (4.18-5.48); Red Cell Distribution Width 16 % (10-15); White Blood Count 5.6 10^3/uL (3.5-10.8)
[2022-07-12 06:38] LABS: ABS Basophils 0.1 10^3/ul (0-0.2); ABS Eosinophils 0.1 10^3/ul (0-0.6); ABS Lymphocytes 1.2 10^3/ul (1.0-4.8); ABS Monocytes 0.6 10^3/ul (0-0.8); ABS Neutrophils 3.7 10^3/ul (1.5-7.7); Eosinophil % 2.1 %; Lymphocyte % 21.2 %
[2022-07-12 06:49] LABS: Albumin 3.3 g/dL (3.2-5.2); Albumin/Globulin Ratio 1.7 (1-3); Calcium 9.3 mg/dL (8.6-10.3); Creatinine, Serum 0.85 mg/dL (0.67-1.17); Magnesium 2.1 mg/dL (1.9-2.7); Potassium 4.1 mmol/L (3.5-5.0); Total Bilirubin 0.4 mg/dL (0.2-1.0); Total Protein 5.3 g/dL (6.4-8.9); eGFR CKD-EPI 84.1 (>60)
[2022-07-12] MEDS: cefTRIAXone 2 gm/50 mL D5W 2 GM/50 ML BAG IV SCH (07:32)
[2022-07-12] MEDS: Potassium Chlor 10 meq TAB PO SCH (07:39)
[2022-07-12] MEDS: Cholecalciferol (VIT D3) 1,000 unit TAB PO SCH (07:39)
[2022-07-12] MEDS ORDERED: Oxymetazoline 0.05% NASAL SPR 15 ML BTL BOTH NARES PRN (11:20)
[2022-07-12 15:21] VITALS: BP 108/69
== END 2022-07-12 16:05 | disposition home or self-care (01) | DRG 871 ==
LOC: ED 14:06 → EDHOLD 14:06 → SUATTDRO 23:19 → EDHOLD 07-07 01:00 → MED 07-07 01:18
PROVIDERS: ADMIT Internal Medicine; ATTEND Internal Medicine

== ENCOUNTER 2022-12-09 17:48 | Observation (INO) ==
[2022-12-09 18:50] LABS: ABS Lymphocytes 0.6 10^3/uL (1.0-4.8); ABS Neutrophils 6.8 10^3/uL (1.5-7.6); ABS Nucleated RBC 0.01 10^3/ul; Hematocrit 37.1 % (38-53); Hemoglobin 12.7 g/dL (13.2-16.3); Lymphocyte % 7.5 %; Mean Corpuscular Hemoglobin 29.6 pg (27-33); Mean Corpuscular Hgb Conc 34.1 g/dL (31-36); Mean Corpuscular Volume 86.9 fL (80-97); Mean Platelet Volume 8.2 fL (7.5-11.2); Nucleated Red Blood Cells % 0.1 /100 WBC (0.0-0.4); Platelet Count 121 10^3/uL (150-450); Red Blood Count 4.28 10^6/uL (4.06-5.63); Red Cell Distribution Width 15.2 % (12-17); White Blood Count 8.4 10^3/uL (3.6-10.2)
[2022-12-09 19:08] LABS: Albumin/Globulin Ratio 1.4 (1-3); Calcium 9.9 mg/dL (8.6-10.3); Creatinine, Serum 1.2 mg/dL (0.67-1.17); Globulin 2.8 g/dL (2-4); Potassium 3.5 mmol/L (3.5-5.0); Total Bilirubin 0.8 mg/dL (0.2-1.0); Total Protein 6.8 g/dL (6.4-8.9); eGFR CKD-EPI 58.5 (>60)
[2022-12-09] MEDS ORDERED: Iodixanol (CONTRAST) 320 MG/ML 100 ML SDV IV ONE (19:19)
[2022-12-09 20:23] LABS: High Sensitivity Troponin 1 Hr 16 pg/mL (<20)
[2022-12-09 21:29] LABS: Urine Appearance Clear; Urine Bilirubin Negative (Negative); Urine Blood Negative (Negative); Urine Color Yellow; Urine Glucose Negative (Negative); Urine Ketones Negative (Negative); Urine Nitrite Negative (Negative); Urine Protein Negative (Negative); Urine Specific Gravity 1.053 (1.002-1.030); Urine Urobilinogen Negative (Negative)
[2022-12-10] MEDS ORDERED: Acetaminophen IV 1 GM/100ML 1,000 MG/100 ML BAG IV ONE (05:39)
[2022-12-10] MEDS ORDERED: Cefepime 2 GM in Dextrose 2 GM/50 ML BAG IV ONE (05:41)
[2022-12-10] MEDS ORDERED: Ondansetron 4 mg VIAL 2 MG/ML 2 ml VIAL IV ONE (06:26)
[2022-12-10 08:10] LABS: ABS Lymphocytes 0.6 10^3/uL (1.0-4.8); ABS Monocytes 0.9 10^3/uL (0.0-1.1); ABS Neutrophils 6.3 10^3/uL (1.5-7.6); ABS Nucleated RBC 0.01 10^3/ul; Eosinophil % 0.1 %; Hematocrit 36.7 % (38-53); Hemoglobin 12.6 g/dL (13.2-16.3); Mean Corpuscular Hemoglobin 30.4 pg (27-33); Mean Corpuscular Hgb Conc 34.3 g/dL (31-36); Mean Corpuscular Volume 88.6 fL (80-97); Mean Platelet Volume 8.1 fL (7.5-11.2); Nucleated Red Blood Cells % 0.1 /100 WBC (0.0-0.4); Platelet Count 109 10^3/uL (150-450); Red Blood Count 4.14 10^6/uL (4.06-5.63); Red Cell Distribution Width 15.1 % (12-17); White Blood Count 7.9 10^3/uL (3.6-10.2)
[2022-12-10 08:26] LABS: Albumin 3.7 g/dL (3.2-5.2); Albumin/Globulin Ratio 1.4 (1-3); C Reactive Protein 157.4 mg/L (<8.01); Calcium 9.4 mg/dL (8.6-10.3); Creatinine, Serum 1.05 mg/dL (0.67-1.17); Globulin 2.7 g/dL (2-4); Potassium 3.6 mmol/L (3.5-5.0); Total Protein 6.4 g/dL (6.4-8.9); eGFR CKD-EPI 68.7 (>60)
[2022-12-10] MEDS ORDERED: Magnesium Hydroxide LIQ 30 ML UDC PO PRN (09:23)
[2022-12-10] MEDS ORDERED: Senna TAB 8.6 mg TAB PO PRN (09:23)
[2022-12-10] MEDS ORDERED: Polyethylene Glycol 3350 17 GM PACKET PO PRN (09:23)
[2022-12-10] MEDS: Lactated Ringers 1000 ml BAG 1,000 ML IV ONE ×2 (10:08→12:25)
[2022-12-10] MEDS: Enoxaparin 40 MG/0.4 ML SYR SUBCUT SCH (12:25)
[2022-12-10] MEDS: Magnesium Hydroxide LIQ 30 ML UDC PO SCH (21:03)
[2022-12-10] MEDS: cefTRIAXone 1 gm/50 mL D5W 1 GM/50 ML BAG IV SCH ×2 (21:05→22:05)
[2022-12-11 06:32] LABS: ABS Eosinophils 0.1 10^3/uL (0.0-0.5); ABS Lymphocytes 1.1 10^3/uL (1.0-4.8); ABS Monocytes 0.8 10^3/uL (0.0-1.1); ABS Neutrophils 2.6 10^3/uL (1.5-7.6); Eosinophil % 1.1 %; Hematocrit 34.9 % (38-53); Lymphocyte % 24.7 %; Mean Corpuscular Hemoglobin 29.8 pg (27-33); Mean Corpuscular Hgb Conc 34.3 g/dL (31-36); Mean Corpuscular Volume 86.9 fL (80-97); Mean Platelet Volume 8.3 fL (7.5-11.2); Platelet Count 113 10^3/uL (150-450); Red Blood Count 4.02 10^6/uL (4.06-5.63); Red Cell Distribution Width 14.8 % (12-17); White Blood Count 4.6 10^3/uL (3.6-10.2)
[2022-12-11 06:46] LABS: Albumin 3.3 g/dL (3.2-5.2); Albumin/Globulin Ratio 1.2 (1-3); Calcium 9.2 mg/dL (8.6-10.3); Globulin 2.7 g/dL (2-4); Potassium 3.8 mmol/L (3.5-5.0); Total Bilirubin 0.6 mg/dL (0.2-1.0); eGFR CKD-EPI 72.8 (>60)
[2022-12-11] MEDS: Enoxaparin 40 MG/0.4 ML SYR SUBCUT SCH (10:05)
[2022-12-11] MEDS: Magnesium Hydroxide LIQ 30 ML UDC PO SCH (10:05)
[2022-12-11 14:09] VITALS: BP 105/58
[2022-12-15 17:54] LABS: Anaplasma phagocytophilum Negative (Negative); B. miyamotoi PCR, B Negative (Negative); Babesia divergens/MO-1 Negative (Negative); Babesia ducani Negative (Negative); Ehrlichia chaffeensis Negative (Negative); Ehrlichia ewingii/canis Negative (Negative); Ehrlichia muris eauclairensis Negative (Negative)
== END 2022-12-11 15:15 | disposition short-term general hospital (02) ==
LOC: ED 17:48 → EDHOLD 17:48 → SUATTDRO 12-10 07:57 → MED 12-10 10:25
PROVIDERS: ADMIT Internal Medicine; ATTEND Internal Medicine

== ENCOUNTER 2023-02-06 10:04 | Inpatient (IN) ==
[2023-02-06] MEDS ORDERED: Lactated Ringers SEPSIS* BAG 2,450 ML IV ONE (10:28)
[2023-02-06] MEDS ORDERED: Ondansetron 4 mg VIAL 2 MG/ML 2 ml VIAL IV ONE ×2 (10:30→13:19)
[2023-02-06 11:22] LABS: ABS Lymphocytes 0.5 10^3/uL (1.0-4.8); ABS Monocytes 0.8 10^3/uL (0.0-1.1); ABS Neutrophils 11.8 10^3/uL (1.5-7.6); Eosinophil % 0.1 %; Hematocrit 37.5 % (38-53); Hemoglobin 12.9 g/dL (13.2-16.3); Lymphocyte % 3.6 %; Mean Corpuscular Hemoglobin 30.1 pg (27-33); Mean Corpuscular Hgb Conc 34.3 g/dL (31-36); Mean Corpuscular Volume 87.8 fL (80-97); Mean Platelet Volume 7.7 fL (7.5-11.2); Platelet Count 283 10^3/uL (150-450); Red Blood Count 4.27 10^6/uL (4.06-5.63); Red Cell Distribution Width 13.8 % (12-17); White Blood Count 13.2 10^3/uL (3.6-10.2)
[2023-02-06 11:40] LABS: Urine Appearance Clear; Urine Bilirubin Negative (Negative); Urine Blood Negative (Negative); Urine Color Yellow; Urine Glucose Negative (Negative); Urine Ketones Negative (Negative); Urine Nitrite Negative (Negative); Urine Protein Negative (Negative); Urine Specific Gravity 1.013 (1.002-1.030); Urine Urobilinogen Negative (Negative)
[2023-02-06 11:41] LABS: Activated Partial Thrombo Time 29.5 seconds (26.0-38.0); Albumin 3.9 g/dL (3.2-5.2); Calcium 9.9 mg/dL (8.6-10.3); Creatinine, Serum 1.34 mg/dL (0.67-1.17); Globulin 3.8 g/dL (2-4); INR 1.13 (0.83-1.13); Potassium 3.4 mmol/L (3.5-5.0); Total Bilirubin 1.2 mg/dL (0.2-1.0); Total Protein 7.7 g/dL (6.4-8.9); eGFR CKD-EPI 51.3 (>60)
[2023-02-06 11:45] LABS: Urine Bacteria Absent (Absent); Urine Red Blood Cell Trace(0-2/hpf) (Absent); Urine White Blood Cell Trace(0-5/hpf) (Absent)
[2023-02-06] MEDS ORDERED: Iodixanol (CONTRAST) 320 MG/ML 100 ML SDV IV ONE (12:32)
[2023-02-06] MEDS ORDERED: cefTRIAXone 1 gm/50 mL D5W 1 GM/50 ML BAG IV SCH (14:30)
[2023-02-06] MEDS: Ondansetron 4 mg VIAL 2 MG/ML 2 ml VIAL IV PRN (15:44)
[2023-02-06] MEDS: Enoxaparin 40 MG/0.4 ML SYR SUBCUT SCH (15:44)
[2023-02-07] MEDS: Ondansetron 4 mg VIAL 2 MG/ML 2 ml VIAL IV PRN ×2 (05:33→14:24)
[2023-02-07 06:05] LABS: ABS Lymphocytes 0.4 10^3/uL (1.0-4.8); ABS Monocytes 0.2 10^3/uL (0.0-1.1); ABS Neutrophils 9.1 10^3/uL (1.5-7.6); ABS Nucleated RBC 0.01 10^3/ul; Hemoglobin 12.7 g/dL (13.2-16.3); Mean Corpuscular Hemoglobin 30.2 pg (27-33); Mean Corpuscular Hgb Conc 34.3 g/dL (31-36); Mean Corpuscular Volume 88.1 fL (80-97); Mean Platelet Volume 7.6 fL (7.5-11.2); Nucleated Red Blood Cells % 0.1 /100 WBC (0.0-0.4); Platelet Count 238 10^3/uL (150-450); Red Blood Count 4.19 10^6/uL (4.06-5.63); Red Cell Distribution Width 13.7 % (12-17); White Blood Count 9.6 10^3/uL (3.6-10.2)
[2023-02-07 06:27] LABS: Albumin 3.5 g/dL (3.2-5.2); Calcium 9.7 mg/dL (8.6-10.3); Creatinine, Serum 1.17 mg/dL (0.67-1.17); Direct Bilirubin 1.1 mg/dL (0.03-0.18); Globulin 3.4 g/dL (2-4); Indirect Bilirubin 1.4 mg/dL (0.3-1.0); Magnesium 2.2 mg/dL (1.9-2.7); Potassium 3.4 mmol/L (3.5-5.0); Total Bilirubin 2.5 mg/dL (0.2-1.0); Total Protein 6.9 g/dL (6.4-8.9); eGFR CKD-EPI 60.3 (>60)
[2023-02-07] MEDS: Potassium Chlor 10 meq TAB PO SCH (09:05)
[2023-02-07] MEDS: Enoxaparin 40 MG/0.4 ML SYR SUBCUT SCH (14:24)
[2023-02-07] MEDS ORDERED: cefTRIAXone 1 gm/50 mL D5W 1 GM/50 ML BAG IV SCH (14:30)
[2023-02-07] MEDS ORDERED: cefTRIAXone 1 gm/50 mL D5W 1 GM/50 ML BAG IV ONE (17:00)
[2023-02-07] MEDS: Polyethylene Glycol 3350 17 GM PACKET PO SCH (18:01)
[2023-02-08] MEDS: Ondansetron 4 mg VIAL 2 MG/ML 2 ml VIAL IV PRN ×2 (02:43→12:07)
[2023-02-08 05:51] LABS: ABS Lymphocytes 0.4 10^3/uL (1.0-4.8); ABS Monocytes 1.1 10^3/uL (0.0-1.1); ABS Neutrophils 17.4 10^3/uL (1.5-7.6); Hematocrit 33.9 % (38-53); Hemoglobin 11.5 g/dL (13.2-16.3); Mean Corpuscular Hemoglobin 29.7 pg (27-33); Mean Corpuscular Volume 87.3 fL (80-97); Mean Platelet Volume 8.2 fL (7.5-11.2); Platelet Count 174 10^3/uL (150-450); Red Blood Count 3.88 10^6/uL (4.06-5.63); Red Cell Distribution Width 13.9 % (12-17); White Blood Count 18.9 10^3/uL (3.6-10.2)
[2023-02-08 06:19] LABS: Albumin 3.4 g/dL (3.2-5.2); Albumin/Globulin Ratio 1.2 (1-3); Calcium 9.7 mg/dL (8.6-10.3); Creatinine, Serum 1.04 mg/dL (0.67-1.17); Globulin 2.9 g/dL (2-4); Potassium 3.3 mmol/L (3.5-5.0); Total Bilirubin 1.6 mg/dL (0.2-1.0); Total Protein 6.3 g/dL (6.4-8.9); eGFR CKD-EPI 69.5 (>60)
[2023-02-08] MEDS: Polyethylene Glycol 3350 17 GM PACKET PO SCH (07:55)
[2023-02-08] MEDS: Potassium Chlor 10 meq TAB PO SCH (08:05)
[2023-02-08] MEDS ORDERED: Lactated Ringers 1000 ml BAG 1,000 ML IV ONE (08:20)
[2023-02-08] MEDS ORDERED: Midazolam 5 mg/5 ml VIAL 1 mg/ml 5 ml VIAL (5 mg) ONE (14:55)
[2023-02-08] MEDS ORDERED: fentaNYL 100 mcg/2 ml 50 MCG/ML VIAL ONE (14:55)
[2023-02-08] MEDS ORDERED: Naloxone 0.4 mg VIAL 0.4 mg/ml 1 ml VIAL ONE (14:55)
[2023-02-08] MEDS ORDERED: Flumazenil 0.5 mg/5 ml 0.1 MG/ML 5 ml VIAL ONE (14:55)
[2023-02-08] MEDS ORDERED: fentaNYL 100 mcg/2 ml 50 MCG/ML VIAL IV SLOW PU ONE (15:03)
[2023-02-08] MEDS ORDERED: Midazolam 10 mg/10 ml VIAL 1 mg/ml 10 ml VIAL (10 mg) IV SLOW PU ONE (15:03)
[2023-02-08] MEDS: cefTRIAXone 2 gm/50 mL D5W 2 GM/50 ML BAG IV SCH (16:58)
[2023-02-08] MEDS: Enoxaparin 40 MG/0.4 ML SYR SUBCUT SCH (16:59)
[2023-02-08] MEDS ORDERED: Sodium Phosphate ADULT ENEMA 133 ML BTL PR ONE (21:00)
[2023-02-08] MEDS ORDERED: Lactated Ringers 1000 ml BAG 1,000 ML IV SCH (22:00)
[2023-02-09 06:56] LABS: Mean Corpuscular Hemoglobin 30.1 pg (27-33); Mean Corpuscular Hgb Conc 34.3 g/dL (31-36); Mean Corpuscular Volume 87.9 fL (80-97); Mean Platelet Volume 8.8 fL (7.5-11.2); Platelet Count 138 10^3/uL (150-450); Red Blood Count 3.64 10^6/uL (4.06-5.63); Red Cell Distribution Width 13.9 % (12-17); White Blood Count 8.2 10^3/uL (3.6-10.2)
[2023-02-09 07:14] LABS: Albumin 2.9 g/dL (3.2-5.2); C Reactive Protein 246.38 mg/L (<8.01); Calcium 9.2 mg/dL (8.6-10.3); Creatinine, Serum 0.9 mg/dL (0.67-1.17); Globulin 2.9 g/dL (2-4); Potassium 3.3 mmol/L (3.5-5.0); Total Protein 5.8 g/dL (6.4-8.9); eGFR CKD-EPI 82.7 (>60)
[2023-02-09] MEDS: Polyethylene Glycol 3350 17 GM PACKET PO SCH (07:59)
[2023-02-09] MEDS: Potassium Chlor 10 meq TAB PO SCH (08:01)
[2023-02-09 08:43] LABS: RBC Morphology Normal (Normal)
[2023-02-09] MEDS ORDERED: Potassium Chlor 10 meq TAB PO ONE (08:55)
[2023-02-09 09:07] LABS: ABS Lymphocytes 0.6 10^3/uL (1.0-4.8); ABS Neutrophils 6.6 10^3/uL (1.5-7.6); ABS Nucleated RBC 0.01 10^3/ul; Eosinophil % 0.2 %; Lymphocyte % 7.7 %; Nucleated Red Blood Cells % 0.1 /100 WBC (0.0-0.4)
[2023-02-09] MEDS ORDERED: Magnesium Hydroxide LIQ 30 ML UDC PO SCH (11:00)
[2023-02-09] MEDS: cefTRIAXone 2 gm/50 mL D5W 2 GM/50 ML BAG IV SCH (15:51)
[2023-02-09] MEDS: Enoxaparin 40 MG/0.4 ML SYR SUBCUT SCH (15:51)
[2023-02-09] MEDS: Ondansetron 4 mg VIAL 2 MG/ML 2 ml VIAL IV PRN ×2 (16:02→19:45)
[2023-02-09] MEDS ORDERED: Lactated Ringers 1000 ml BAG 1,000 ML IV ONE (18:41)
[2023-02-09] MEDS ORDERED: Lorazepam PYXIS KEY PRN (20:12)
[2023-02-09] MEDS ORDERED: LORazepam 2 mg VIAL 1 ml IV PUSH ONE (21:10)
[2023-02-10 05:51] LABS: ABS Lymphocytes 0.8 10^3/uL (1.0-4.8); ABS Monocytes 0.8 10^3/uL (0.0-1.1); ABS Neutrophils 5.8 10^3/uL (1.5-7.6); ABS Nucleated RBC 0.01 10^3/ul; Eosinophil % 0.6 %; Hematocrit 31.6 % (38-53); Hemoglobin 10.8 g/dL (13.2-16.3); Lymphocyte % 11.1 %; Mean Corpuscular Hemoglobin 29.9 pg (27-33); Mean Corpuscular Hgb Conc 34.1 g/dL (31-36); Mean Corpuscular Volume 87.7 fL (80-97); Mean Platelet Volume 8.9 fL (7.5-11.2); Nucleated Red Blood Cells % 0.1 /100 WBC (0.0-0.4); Platelet Count 143 10^3/uL (150-450); Red Blood Count 3.61 10^6/uL (4.06-5.63); White Blood Count 7.5 10^3/uL (3.6-10.2)
[2023-02-10 06:23] LABS: Albumin 2.9 g/dL (3.2-5.2); Calcium 8.8 mg/dL (8.6-10.3); Creatinine, Serum 0.74 mg/dL (0.67-1.17); Globulin 2.5 g/dL (2-4); Potassium 3.5 mmol/L (3.5-5.0); Total Protein 5.4 g/dL (6.4-8.9); eGFR CKD-EPI 87.7 (>60)
[2023-02-10 06:24] LABS: Albumin/Globulin Ratio 1.2 (1-3); Total Bilirubin 0.9 mg/dL (0.2-1.0)
[2023-02-10] MEDS: Polyethylene Glycol 3350 17 GM PACKET PO SCH (08:57)
[2023-02-10] MEDS: Potassium Chlor 10 meq TAB PO SCH (08:57)
[2023-02-10] MEDS: Ondansetron 4 mg VIAL 2 MG/ML 2 ml VIAL IV PRN ×2 (09:03→23:09)
[2023-02-10 10:44] LABS: Urine Appearance Clear; Urine Bilirubin Negative (Negative); Urine Blood Negative (Negative); Urine Color Yellow; Urine Glucose Negative (Negative); Urine Ketones Negative (Negative); Urine Nitrite Negative (Negative); Urine Protein Negative (Negative); Urine Specific Gravity 1.013 (1.002-1.030); Urine Urobilinogen Positive (Negative)
[2023-02-10] MEDS: cefTRIAXone 2 gm/50 mL D5W 2 GM/50 ML BAG IV SCH (15:31)
[2023-02-10] MEDS: Enoxaparin 40 MG/0.4 ML SYR SUBCUT SCH (15:31)
[2023-02-10] MEDS ORDERED: LORazepam 2 mg VIAL 1 ml IV PUSH ONE (20:12)
[2023-02-11] MEDS ORDERED: Lactated Ringers 1000 ml BAG 1,000 ML IV SCH (09:00)
[2023-02-11 09:21] LABS: ABS Eosinophils 0.1 10^3/uL (0.0-0.5); ABS Lymphocytes 0.9 10^3/uL (1.0-4.8); ABS Monocytes 0.8 10^3/uL (0.0-1.1); Eosinophil % 0.8 %; Hematocrit 33.5 % (38-53); Hemoglobin 11.3 g/dL (13.2-16.3); Lymphocyte % 12.7 %; Mean Corpuscular Hemoglobin 29.6 pg (27-33); Mean Corpuscular Hgb Conc 33.6 g/dL (31-36); Mean Corpuscular Volume 88.2 fL (80-97); Mean Platelet Volume 8.9 fL (7.5-11.2); Nucleated Red Blood Cells % 0.1 /100 WBC (0.0-0.4); Platelet Count 164 10^3/uL (150-450); Red Cell Distribution Width 14.4 % (12-17); White Blood Count 6.7 10^3/uL (3.6-10.2)
[2023-02-11] MEDS: Polyethylene Glycol 3350 17 GM PACKET PO SCH (09:26)
[2023-02-11] MEDS: Potassium Chlor 10 meq TAB PO SCH (09:27)
[2023-02-11 09:31] LABS: INR 1.11 (0.83-1.13)
[2023-02-11 09:32] LABS: Albumin/Globulin Ratio 1.1 (1-3); C Reactive Protein 106.3 mg/L (<8.01); Calcium 8.9 mg/dL (8.6-10.3); Creatinine, Serum 0.77 mg/dL (0.67-1.17); Globulin 2.7 g/dL (2-4); Potassium 3.7 mmol/L (3.5-5.0); Total Bilirubin 1.2 mg/dL (0.2-1.0); Total Protein 5.7 g/dL (6.4-8.9); eGFR CKD-EPI 86.6 (>60)
[2023-02-11] MEDS: Enoxaparin 40 MG/0.4 ML SYR SUBCUT SCH (16:00)
[2023-02-11] MEDS: cefTRIAXone 2 gm/50 mL D5W 2 GM/50 ML BAG IV SCH (16:00)
[2023-02-12 08:24] LABS: Hematocrit 31.5 % (38-53); Hemoglobin 10.7 g/dL (13.2-16.3); Mean Corpuscular Hemoglobin 29.9 pg (27-33); Mean Corpuscular Hgb Conc 34.1 g/dL (31-36); Mean Corpuscular Volume 87.5 fL (80-97); Mean Platelet Volume 8.6 fL (7.5-11.2); Platelet Count 184 10^3/uL (150-450); Red Cell Distribution Width 14.4 % (12-17); White Blood Count 7.1 10^3/uL (3.6-10.2)
[2023-02-12 08:46] LABS: Albumin 2.9 g/dL (3.2-5.2); Calcium 8.7 mg/dL (8.6-10.3); Creatinine, Serum 0.72 mg/dL (0.67-1.17); Globulin 2.8 g/dL (2-4); Total Bilirubin 1.2 mg/dL (0.2-1.0); Total Protein 5.7 g/dL (6.4-8.9); eGFR CKD-EPI 88.4 (>60)
[2023-02-12] MEDS: Polyethylene Glycol 3350 17 GM PACKET PO SCH (08:51)
[2023-02-12] MEDS: Potassium Chlor 10 meq TAB PO SCH (08:51)
[2023-02-12 09:12] LABS: RBC Morphology Normal (Normal)
[2023-02-12 09:13] LABS: ABS Basophils 0.1 10^3/uL (0.0-0.1); ABS Eosinophils 0.1 10^3/uL (0.0-0.5); ABS Monocytes 0.9 10^3/uL (0.0-1.1); ABS Neutrophils 5.1 10^3/uL (1.5-7.6); ABS Nucleated RBC 0.02 10^3/ul; Eosinophil % 1.1 %; Lymphocyte % 13.5 %; Nucleated Red Blood Cells % 0.2 /100 WBC (0.0-0.4)
[2023-02-12] MEDS: cefTRIAXone 2 gm/50 mL D5W 2 GM/50 ML BAG IV SCH (15:42)
[2023-02-12] MEDS: Enoxaparin 40 MG/0.4 ML SYR SUBCUT SCH (15:45)
[2023-02-12] MEDS: Ondansetron 4 mg VIAL 2 MG/ML 2 ml VIAL IV PRN (21:32)
[2023-02-13 06:16] LABS: Hemoglobin 10.8 g/dL (13.2-16.3); Mean Corpuscular Hemoglobin 29.8 pg (27-33); Mean Corpuscular Hgb Conc 33.7 g/dL (31-36); Mean Corpuscular Volume 88.3 fL (80-97); Mean Platelet Volume 8.5 fL (7.5-11.2); Platelet Count 219 10^3/uL (150-450); Red Blood Count 3.62 10^6/uL (4.06-5.63); Red Cell Distribution Width 14.5 % (12-17); White Blood Count 8.1 10^3/uL (3.6-10.2)
[2023-02-13 06:32] LABS: Albumin 2.9 g/dL (3.2-5.2); Calcium 8.9 mg/dL (8.6-10.3); Creatinine, Serum 0.85 mg/dL (0.67-1.17); Globulin 2.8 g/dL (2-4); Magnesium 2.4 mg/dL (1.9-2.7); Potassium 4.4 mmol/L (3.5-5.0); Total Bilirubin 1.1 mg/dL (0.2-1.0); Total Protein 5.7 g/dL (6.4-8.9); eGFR CKD-EPI 84.1 (>60)
[2023-02-13 07:15] LABS: ABS Eosinophils 0.1 10^3/uL (0.0-0.5); ABS Lymphocytes 1.1 10^3/uL (1.0-4.8); ABS Monocytes 0.9 10^3/uL (0.0-1.1); ABS Neutrophils 5.9 10^3/uL (1.5-7.6); ABS Nucleated RBC 0.01 10^3/ul; Eosinophil % 1.7 %; Lymphocyte % 13.7 %; Nucleated Red Blood Cells % 0.1 /100 WBC (0.0-0.4)
[2023-02-13] MEDS: Polyethylene Glycol 3350 17 GM PACKET PO SCH (09:09)
[2023-02-13] MEDS: Potassium Chlor 10 meq TAB PO SCH (09:10)
[2023-02-13 09:45] VITALS: BP 135/82
== END 2023-02-13 09:55 | disposition short-term general hospital (02) | DRG 871 ==
LOC: ED 10:04 → EDHOLD 10:04 → SUATTDRO 14:05 → MED 16:10 → SUATTDRO 02-07 18:06
PROVIDERS: ADMIT Internal Medicine; ATTEND Hospitalist

== ENCOUNTER 2023-05-30 19:46 | Observation (INO) ==
[2023-05-30 21:32] LABS: ABS Lymphocytes 1.1 10^3/uL (1.0-4.8); ABS Neutrophils 7.2 10^3/uL (1.5-7.6); Eosinophil % 0.1 %; Hematocrit 36.5 % (38-53); Hemoglobin 12.2 g/dL (13.2-16.3); Lymphocyte % 11.6 %; Mean Corpuscular Hemoglobin 29.4 pg (27-33); Mean Corpuscular Hgb Conc 33.3 g/dL (31-36); Mean Corpuscular Volume 88.2 fL (80-97); Mean Platelet Volume 8.6 fL (7.5-11.2); Nucleated Red Blood Cells % 0.1 %/100WBC (0.0-0.8); Platelet Count 191 10^3/uL (150-450); Red Blood Count 4.14 10^6/uL (4.06-5.63); Red Cell Distribution Width 14.4 % (12-17); White Blood Count 9.4 10^3/uL (3.6-10.2)
[2023-05-30 21:49] LABS: ALT 6 U/L (7-52); Albumin 3.9 g/dL (3.2-5.2); Albumin/Globulin Ratio 1.4 (1-3); Alkaline Phosphatase 89 U/L (35-149); Blood Urea Nitrogen 18 mg/dL (6-24); CO2 Carbon Dioxide 24 mmol/L (22-32); Calcium 9.8 mg/dL (8.6-10.3); Chloride 102 mmol/L (101-111); Creatinine, Serum 1.27 mg/dL (0.67-1.17); Globulin 2.8 g/dL (2-4); Glucose 117 mg/dL (70-100); Sodium 136 mmol/L (135-145); Total Bilirubin 0.6 mg/dL (0.2-1.0); Total Protein 6.7 g/dL (6.4-8.9); eGFR CKD-EPI 54.3 (>60)
[2023-05-30 21:50] LABS: Anion Gap 10 mmol/L (2-16)
[2023-05-30] MEDS ORDERED: Iodixanol (CONTRAST) 320 MG/ML 100 ML SDV IV ONE (22:14)
[2023-05-30] MEDS ORDERED: Cefepime 1 GM in Dextrose 1 GM/50 ML BAG IV ONE (22:59)
[2023-05-30] MEDS ORDERED: metroNIDAZOLE IV 500 MG/100ML 500 MG/100 ML BAG IVPB ONE (22:59)
[2023-05-31] MEDS ORDERED: Ondansetron 4 mg VIAL 2 MG/ML 2 ml VIAL IV PRN (01:45)
[2023-05-31 03:40] LABS: Urine Appearance Clear; Urine Bilirubin Negative (Negative); Urine Blood Negative (Negative); Urine Color Yellow; Urine Glucose Negative (Negative); Urine Ketones Negative (Negative); Urine Nitrite Negative (Negative); Urine Protein Negative (Negative); Urine Specific Gravity 1.051 (1.002-1.030); Urine Urobilinogen Negative (Negative)
[2023-05-31] MEDS ORDERED: Acetaminophen IV 1 GM/100ML 1,000 MG/100 ML BAG IV PRN (05:25)
[2023-05-31] MEDS: Heparin 5000 UNITS/ML 1 mL VIAL SUBCUT SCH ×3 (06:15→20:49)
[2023-05-31] MEDS: NS 0.9% 1000 ml BAG 1,000 ML IV SCH ×2 (06:18→22:18)
[2023-05-31] MEDS: Potassium Chlor 10 meq TAB PO SCH ×2 (08:38→20:46)
[2023-05-31 11:30] LABS: Activated Partial Thrombo Time 31.9 seconds (26.0-38.0); INR 1.16 (0.83-1.13)
[2023-05-31] MEDS ORDERED: cefTRIAXone 2 gm/50 mL D5W 2 GM/50 ML BAG IV SCH (12:00)
[2023-06-01] MEDS: Heparin 5000 UNITS/ML 1 mL VIAL SUBCUT SCH ×3 (05:51→21:14)
[2023-06-01 07:25] LABS: ABS Eosinophils 0.1 10^3/uL (0.0-0.5); ABS Lymphocytes 1.3 10^3/uL (1.0-4.8); ABS Monocytes 0.5 10^3/uL (0.0-1.1); ABS Neutrophils 2.3 10^3/uL (1.5-7.6); Eosinophil % 2.2 %; Hematocrit 36.4 % (38-53); Hemoglobin 12.2 g/dL (13.2-16.3); Lymphocyte % 30.6 %; Mean Corpuscular Hemoglobin 29.6 pg (27-33); Mean Corpuscular Hgb Conc 33.6 g/dL (31-36); Mean Corpuscular Volume 87.8 fL (80-97); Mean Platelet Volume 8.1 fL (7.5-11.2); Nucleated Red Blood Cells % 0.1 %/100WBC (0.0-0.8); Platelet Count 185 10^3/uL (150-450); Red Blood Count 4.14 10^6/uL (4.06-5.63); Red Cell Distribution Width 14.3 % (12-17); White Blood Count 4.2 10^3/uL (3.6-10.2)
[2023-06-01 07:44] LABS: Albumin 3.8 g/dL (3.2-5.2); Albumin/Globulin Ratio 1.2 (1-3); Calcium 9.7 mg/dL (8.6-10.3); Creatinine, Serum 1.28 mg/dL (0.67-1.17); Globulin 3.1 g/dL (2-4); Potassium 3.4 mmol/L (3.5-5.0); Total Bilirubin 0.3 mg/dL (0.2-1.0); Total Protein 6.9 g/dL (6.4-8.9); eGFR CKD-EPI 53.8 (>60)
[2023-06-01] MEDS ORDERED: Senna TAB 8.6 mg TAB PO PRN (08:59)
[2023-06-01] MEDS: Potassium Chlor 10 meq TAB PO SCH ×2 (09:11→21:13)
[2023-06-01] MEDS ORDERED: Lactulose 30 ml UDC ONE (09:15)
[2023-06-01] MEDS ORDERED: Polyethylene Glycol 3350 17 GM PACKET ONE (09:15)
[2023-06-01] MEDS: Lactulose 30 ml UDC PO SCH ×2 (09:17→16:13)
[2023-06-01] MEDS: cefTRIAXone 1 gm/50 mL D5W 1 GM/50 ML BAG IV SCH (11:35)
[2023-06-01] MEDS: KCL 20 MEQ/100 ML IVPREMIX 20 MEQ/100 ML BAG IV SCH ×2 (12:21→15:27)
[2023-06-01] MEDS: NS 0.9% 1000 ml BAG 1,000 ML IV SCH (12:21)
[2023-06-01] MEDS ORDERED: [UNRECOGNIZED DRUG - OTHER] PO PRN (16:12)
[2023-06-01] MEDS: Polyethylene Glycol 3350 17 GM PACKET PO SCH (19:53)
[2023-06-02] MEDS: NS 0.9% 1000 ml BAG 1,000 ML IV SCH (02:11)
[2023-06-02] MEDS: Heparin 5000 UNITS/ML 1 mL VIAL SUBCUT SCH (06:09)
[2023-06-02 06:11] LABS: Hematocrit 35.9 % (38-53); Hemoglobin 12.1 g/dL (13.2-16.3); Mean Corpuscular Hemoglobin 29.8 pg (27-33); Mean Corpuscular Hgb Conc 33.8 g/dL (31-36); Platelet Count 211 10^3/uL (150-450); Red Blood Count 4.08 10^6/uL (4.06-5.63); White Blood Count 4.3 10^3/uL (3.6-10.2)
[2023-06-02 06:32] LABS: Calcium 9.5 mg/dL (8.6-10.3); Creatinine, Serum 1.26 mg/dL (0.67-1.17); Potassium 3.5 mmol/L (3.5-5.0); eGFR CKD-EPI 54.9 (>60)
[2023-06-02] MEDS: Polyethylene Glycol 3350 17 GM PACKET PO SCH (08:55)
[2023-06-02] MEDS: Potassium Chlor 10 meq TAB PO SCH (08:59)
[2023-06-02 09:43] VITALS: BP 115/70
[2023-06-02] MEDS: cefTRIAXone 1 gm/50 mL D5W 1 GM/50 ML BAG IV SCH (11:55)
== END 2023-06-02 14:01 | disposition short-term general hospital (02) ==
LOC: ED 19:46 → EDHOLD 19:46 → SUATTDRO 05-31 03:18 → MED 05-31 03:18
PROVIDERS: ADMIT Internal Medicine; ATTEND Internal Medicine

== ENCOUNTER 2023-11-12 11:48 | Inpatient (IN) ==
[2023-11-12 12:41] LABS: ABS Lymphocytes 1.1 10^3/uL (1.0-4.8); ABS Monocytes 1.1 10^3/uL (0.0-1.1); ABS Neutrophils 9.5 10^3/uL (1.5-7.6); ABS Nucleated RBC 0.01 10^3/ul; Eosinophil % 0.1 %; Hematocrit 37.6 % (38-53); Hemoglobin 12.6 g/dL (13.2-16.3); Lymphocyte % 9.1 %; Mean Corpuscular Hemoglobin 29.9 pg (27-33); Mean Corpuscular Hgb Conc 33.6 g/dL (31-36); Mean Corpuscular Volume 89.2 fL (80-97); Mean Platelet Volume 8.4 fL (7.5-11.2); Nucleated Red Blood Cells % 0.1 %/100WBC (0.0-0.8); Platelet Count 198 10^3/uL (150-450); Red Blood Count 4.21 10^6/uL (4.06-5.63); Red Cell Distribution Width 14.1 % (12-17); White Blood Count 11.7 10^3/uL (3.6-10.2)
[2023-11-12 12:50] LABS: INR 1.23 (0.83-1.13)
[2023-11-12 13:23] LABS: Albumin 3.8 g/dL (3.2-5.2); Albumin/Globulin Ratio 1.4 (1-3); C Reactive Protein 287.62 mg/L (<8.01); Calcium 9.9 mg/dL (8.6-10.3); Creatinine, Serum 1.21 mg/dL (0.67-1.17); Globulin 2.8 g/dL (2-4); Potassium 3.5 mmol/L (3.5-5.0); Total Bilirubin 1.5 mg/dL (0.2-1.0); Total Protein 6.6 g/dL (6.4-8.9); eGFR CKD-EPI 57.6 (>60)
[2023-11-12] MEDS: Ondansetron 4 mg VIAL 2 MG/ML 2 ml VIAL IV ONE (13:54)
[2023-11-12 13:58] LABS: High Sensitivity Troponin 1 Hr 13 pg/mL (<20)
[2023-11-12] MEDS: Iodixanol (CONTRAST) 320 MG/ML 100 ML SDV IV ONE (15:26)
[2023-11-12] MEDS: cefTRIAXone 2 gm/50 mL D5W 2 GM/50 ML BAG IV ONE (15:36)
[2023-11-12] MEDS: metroNIDAZOLE IV 500 MG/100ML 500 MG/100 ML BAG IVPB ONE (16:25)
[2023-11-12 17:53] LABS: Urine Appearance Clear; Urine Bacteria Absent /HPF (Absent); Urine Bilirubin Negative (Negative); Urine Blood Negative (Negative); Urine Color Yellow; Urine Glucose Negative (Negative); Urine Ketones Negative (Negative); Urine Nitrite Negative (Negative); Urine Protein 1+ (>=30 mg/dL) (Negative); Urine Red Blood Cell Trace(0-2/hpf) /HPF (0-Trace); Urine Specific Gravity >1.050 (1.002-1.030); Urine Urobilinogen Negative (Negative); Urine White Blood Cell Trace(0-5/hpf) /HPF (0-Trace); Urine pH 6.5 (5.0-8.0)
[2023-11-12] MEDS: Ondansetron 4 mg VIAL 2 MG/ML 2 ml VIAL IV PRN (19:18)
[2023-11-12] MEDS ORDERED: Fluticasone NASAL SPRAY 50MCG 16 gm SPRAY BTL BOTH NARES PRN (20:37)
[2023-11-12] MEDS ORDERED: Albuterol HFA INHALER 8 gm MDI INH PRN (20:37)
[2023-11-12] MEDS: Enoxaparin 30 MG/0.3 ML SYR SUBCUT SCH (22:55)
[2023-11-12] MEDS: Potassium Chlor 20 meq TAB.ER PO ONE (22:55)
[2023-11-13] MEDS: metroNIDAZOLE IV 500 MG/100ML 500 MG/100 ML BAG IVPB SCH (04:35)
[2023-11-13 06:04] LABS: Hemoglobin 11.9 g/dL (13.2-16.3); Mean Corpuscular Hemoglobin 30.2 pg (27-33); Mean Corpuscular Hgb Conc 33.9 g/dL (31-36); Mean Corpuscular Volume 89.3 fL (80-97); Platelet Count 208 10^3/uL (150-450); Red Blood Count 3.92 10^6/uL (4.06-5.63); Red Cell Distribution Width 14.3 % (12-17); White Blood Count 8.6 10^3/uL (3.6-10.2)
[2023-11-13] MEDS: Cefepime 2 GM in Dextrose 2 GM/50 ML BAG IV SCH (06:14)
[2023-11-13 06:40] LABS: Calcium 9.4 mg/dL (8.6-10.3); Creatinine, Serum 1.12 mg/dL (0.67-1.17); Magnesium 2.2 mg/dL (1.9-2.7); Potassium 3.5 mmol/L (3.5-5.0); eGFR CKD-EPI 63.2 (>60)
[2023-11-13] MEDS ORDERED: cefTRIAXone 2 gm/50 mL D5W 2 GM/50 ML BAG IV SCH (09:00)
[2023-11-13 09:26] LABS: ABS Lymphocytes 1.4 10^3/uL (1.0-4.8); ABS Monocytes 1.2 10^3/uL (0.0-1.1); ABS Neutrophils 5.9 10^3/uL (1.5-7.6); Eosinophil % 0.1 %; Lymphocyte % 15.9 %
[2023-11-13] MEDS: Acetylcysteine 600mgCAP(RENAL) PO SCH (10:58)
[2023-11-13] MEDS: Polyethylene Glycol 3350 17 GM PACKET PO SCH (10:59)
[2023-11-13] MEDS: URSODIOL 500 MG PO SCH (11:01)
[2023-11-14 06:34] LABS: Hematocrit 34.6 % (38-53); Hemoglobin 11.8 g/dL (13.2-16.3); Mean Corpuscular Hemoglobin 30.7 pg (27-33); Mean Corpuscular Hgb Conc 34.2 g/dL (31-36); Mean Corpuscular Volume 89.7 fL (80-97); Mean Platelet Volume 8.1 fL (7.5-11.2); Platelet Count 240 10^3/uL (150-450); Red Blood Count 3.86 10^6/uL (4.06-5.63); Red Cell Distribution Width 14.5 % (12-17); White Blood Count 5.3 10^3/uL (3.6-10.2)
[2023-11-14 07:53] LABS: Calcium 9.7 mg/dL (8.6-10.3); Magnesium 2.3 mg/dL (1.9-2.7); Potassium 3.8 mmol/L (3.5-5.0); eGFR CKD-EPI 72.4 (>60)
[2023-11-14 08:06] LABS: ABS Eosinophils 0.1 10^3/uL (0.0-0.5); ABS Lymphocytes 1.2 10^3/uL (1.0-4.8); ABS Monocytes 0.5 10^3/uL (0.0-1.1); ABS Neutrophils 3.5 10^3/uL (1.5-7.6); Eosinophil % 1.7 %; Lymphocyte % 22.8 %; RBC Morphology Normal (Normal)
[2023-11-14 08:36] LABS: Albumin 3.3 g/dL (3.2-5.2); Albumin/Globulin Ratio 1.3 (1-3); Direct Bilirubin 0.1 mg/dL (0.03-0.18); Globulin 2.6 g/dL (2-4); Indirect Bilirubin 0.3 mg/dL (0.3-1.0); Total Bilirubin 0.4 mg/dL (0.2-1.0); Total Protein 5.9 g/dL (6.4-8.9)
[2023-11-14] MEDS: Potassium Chlor 10 meq TAB PO SCH (08:49)
[2023-11-14 10:23] LABS: C Reactive Protein 197.92 mg/L (<8.01)
[2023-11-14 17:13] VITALS: BP 113/72
== END 2023-11-14 18:40 | disposition home health service (06) | DRG 872 ==
LOC: EDHOLD 11:48 → ED 11:48 → MED 20:38
PROVIDERS: ADMIT Student in an Organized Health Care Education/Training Program; ATTEND Student in an Organized Health Care Education/Training Program